=== PATIENT | male | born 1970 | race Asian ===

== ENCOUNTER 2022-03-11 13:33 | Outpatient (CLI) | payer OTHER, SELFPAY ==
--- NOTE | ~2022-03-11 | XR_ITS ---
XR shoulder RT min 2V DATE: 03/11/2022 13:58 INDICATION: Right shoulder pain. Limited range of motion. No injury. TECHNIQUE: 4 views COMPARISON: None FINDINGS: There is mild degenerative spurring at the right acromioclavicular joint. No fracture or di slocation, periosteal reaction or bone destruction or abnormal soft tissue calcification of the right shoulder. IMPRESSION: Mild degenerative spurring at right acromioclavicular joint Reviewed, dictated and finalized at location A.
== END 2022-03-11 13:34 | disposition home or self-care (01) ==
LOC: ANHIMG 13:45
PROVIDERS: PCP Internal Medicine Gastroenterology; Visit Provider Internal Medicine Gastroenterology
DX: M19.011 Primary osteoarthritis, right shoulder (principal)
CPT/HCPCS: 73030